=== PATIENT | male | born 1980 | race Caucasian/White ===

== ENCOUNTER 2016-12-29 08:43 | Emergency (ER) | payer OTHER ==
[~2016-12-29] VITALS: Ht 185.4 cm; Wt 225.0 kg
[2016-12-29] MEDS ORDERED: NAPROSYN500 MG PO (11:27)
[2016-12-29] MEDS ORDERED: NORCO 5/3251 TABLET PO (11:27)
[2016-12-29] MEDS ORDERED: FLEXERIL10 MG PO (11:27)
[2016-12-29 11:36] VITALS: BP 150/82
== END 2016-12-29 11:38 | disposition home or self-care (01) ==
LOC: EME 08:43
DX: M62.830 Muscle spasm of back (principal); R07.89 Other chest pain; I10 Essential (primary) hypertension; Z87.891 Personal history of nicotine dependence
CPT/HCPCS: 71020; 93005; 99281; 99284; J1885; J3010